=== PATIENT | female | born 1995 | race Caucasian/White ===

== ENCOUNTER 2021-08-06 13:50 | Emergency (ER) | payer SELFPAY ==
[2021-08-06] MEDS ORDERED: Sodium Chloride 0.9% 1,000 ML ONE (14:34)
[2021-08-06] MEDS ORDERED: Ketorolac Tromethamine 30 MG/ML VIAL ONE (14:34)
[2021-08-06] MEDS ORDERED: diphenhydrAMINE 50 MG/ML VIAL ONE (14:34)
[2021-08-06] MEDS ORDERED: Sodium Chloride 0.9% 100 ML ONE (14:34)
[2021-08-06] MEDS ORDERED: Metoclopramide HCl 10 MG/2 ML VIAL ONE (14:35)
[2021-08-06 14:50] LABS: Pregnancy Test - Urine (BHCG) Negative (Negative); Pregu Control Background? CLEAR/WHITE (CLR/WHITE); Pregu Control Bar Appear? YES (CONTROL BAR); Specific Gravity 1.037 (1.002-1.036)
[2021-08-06 14:51] LABS: Bilirubin Small (Negative); Blood, Urine Trace (Negative); Clarity Hazy (Clear); Glucose, Urine (Dipstick) Negative (Negative); Ketone, Urine Trace mg/dL (Negative); Leukocyte Negative (Negative); Nitrite Negative (Negative); Protein, Urine (Dipstick) 30 mg/dL (Neg-Trace); Specific Gravity, Urine 1.037 (1.002-1.036); pH, Urine 5.5 (5.0-9.0)
[2021-08-06 14:55] LABS: Bacteria/HPF Rare-Few HPF (None Seen); Mucous/LPF 3+ LPF (<2+); RBC/HPF 0-3 HPF (0-3); WBC/HPF 0-3 HPF (0-3)
== END 2021-08-06 15:54 | disposition home or self-care (01) ==
LOC: MADERS 13:50
DX: G43.909 Migraine, unspecified, not intractable, without status migrainosus (principal); F17.290 Nicotine dependence, other tobacco product, uncomplicated
CPT/HCPCS: 81003; 81015; 81025; 96365; 96375; J1200; J1885; J2765; J3490; J7050

== ENCOUNTER 2021-10-21 14:36 | Emergency (ER) | payer SELFPAY ==
[2021-10-21 15:48] LABS: Pregnancy Test - Urine (BHCG) Negative (Negative); Pregu Control Background? CLEAR/WHITE (CLR/WHITE); Pregu Control Bar Appear? YES (CONTROL BAR); Specific Gravity 1.015 (1.002-1.036)
== END 2021-10-21 16:03 | disposition home or self-care (01) ==
LOC: MADERS 14:36
DX: S46.911A Strain of unspecified muscle, fascia and tendon at shoulder and upper arm level, right arm, initial encounter (principal); F17.290 Nicotine dependence, other tobacco product, uncomplicated
CPT/HCPCS: 81025; 99284